=== PATIENT | male | born 1945 | race Caucasian/White ===

== ENCOUNTER 2018-01-05 18:32 | Inpatient (IN) ==
--- NOTE | 2018-01-05 21:17 | Internal Med History&Physical ---
<Myke Davidson - Last Filed: 01/06/18 01:04> Date of Encounter: 01/05/18 Time of Encounter: 21:05 Internal Medicine - H&P: HPI Chief complaint: Diarrhea Admitted From: Intrahospital Transfer ([facility]) History of present illness: Mr. Pineda is a 72 year old male with a past medical history of hypertension, hyperlipidemia, bowel resection, and obesity who was transferred from [facility] secondary to diarrhea for the past 8 days and acute kidney injury. Patient reports lightheadedness, cramping abdominal pain and diarrhea since eating chicken eggs from his neighbor that he thinks may have been out of date. He denies associated fever, chills, chest pain, shortness of breath, recent travel, recent camping, sick contacts, or history of similar symptoms in the past. Patient was evaluated yesterday by his PCP and notified today that his stool sample was positive for Salmonella and enteropathogenic Escherichia coli. Patient reports decreased urine output today and vital signs at [facility] revealed blood pressure 72/51, heart rate 72 after taking his beta eddie this morning, respiratory rate 20, temp afebrile, O2 sat 99% on room air. The patient was given 2 L normal saline bolus, 1 L lactated ringers, and 1 g Rocephin IV 1 prior to arrival. Labs revealed WBC 7.9, hemoglobin 15.3 , hematocrit 44.1, platelets 322, sodium 138, potassium 3.4, chloride 99, CO2 21 , BUN 68, creatinine 9.3, glucose 159, calcium 8.9, lipase 511, and lactic acid level 2.7 CT abdomen and pelvis without contrast revealed inflammatory changes involving the small bowel and descending colon with fluid in the pelvis. There is a non- obstructing stone in the right kidney, two low attenuation lesions of indeterminate etiology in the right kidney measuring up to 1.3 cm, and a 1.3 cm nodule in the right adrenal gland. MRI scan of the adrenals and kidneys was recommended. Past Med Surg Social Fam HX - Past Medical History Medical history: cancer, hyperlipidemia, hypertension, thyroid disease Additional medical history: Colon Cancer. CAD Psychiatric history: no psych history - Past Surgical History Surgical History: appendectomy, cancer surgery, cholecystectomy Additional surgical history: Heart Cath with stents, colon resection tubular adenoma 2 in 2016 - Social History Smoking Status: Former smoker Smokeless Tobacco Status: No Alcohol use: none Drug use: none Current living situation: Home, With Family Activity Level: Independent ambulation Recent Out of Country Travel Within the Last 8 Weeks: No Exposure or Possible Exposure to Illness During Travel: No - Family History Mother Hx Family Respiratory Disorders: Yes (COPD) Father Hx Family Endocrine Disorder: Yes (DM) Internal Medicine - H&P: Meds Amlodipine Besylate 10 mg PO DAILY 10/11/15 [History] Aspirin 81 mg PO DAILY 10/11/15 [History] Atorvastatin [Lipitor] 40 mg PO HS 10/11/15 [History] Ergocalciferol (VITAMIN D2) [Vitamin D] 400 unit PO DAILY 10/11/15 [History] Isosorbide MONOnitrate (24 HR) [Imdur] 30 mg PO DAILY 10/11/15 [History] Levothyroxine [Synthroid] 150 mcg PO DAILY 10/11/15 [History] Lisinopril [Zestril] 20 mg PO DAILY 10/11/15 [History] Vitamin E (Dl,Tocopheryl Acet) [Vitamin E] 400 unit PO DAILY 10/11/15 [History] Cholecalciferol (D-3) [Vitamin D] 1,000 unit PO DAILY 01/05/18 [History] Metoprolol Succinate [Toprol Xl] 100 mg PO DAILY 01/05/18 [History] 3 Allergy/AdvReac Type Severity Reaction Status Date / Time No Known Allergies Allergy Verified 10/11/15 10:52 All Systems PM: A 10-system review of systems was performed and is negative for pertinent findings except as documented above in the HPI. - Constitutional Constitutional: anorexia, fatigue, malaise, weakness, no chills, no fever(s), no weight gain, no weight loss - EENT Eyes: no blurry vision, no change in vision Nose, mouth and throat: no sinus pain, no sore throat - Cardiovascular Cardiovascular ROS IM: no chest pain, no palpitations - Respiratory Respiratory: no cough, no dyspnea - Gastrointestinal Gastrointestinal: abdominal pain, belching, diarrhea, loose stools, nausea, no bloating, no constipation, no hematemesis, no hematochezia, no melena, no vomiting - Genitourinary Genitourinary ROS male: no dysuria, no urinary frequency, no urinary urgency - Musculoskeletal Musculoskeletal ROS IM: no numbness, no tingling - Integumentary Integumentary IM: no erythema, no rash - Neurological Neurological ROS: weakness, no numbness, no tingling - Psychiatric Psychiatric: no anxiety, no depression - Endocrine Endocrine IM: fatigue, no polydipsia, no polyphagia, no polyuria - Hematologic/Lymphatic Hematologic/Lymphatic: no easy bleeding, no easy bruising - Constitutional General appearance: Present: cooperative, A&O X 3, pleasant, no acute distress, obese, answers questions appropriately Exam: Conversant, able to walk from the stretcher to the bed without difficulty - Head Head exam: Present: atraumatic, normocephalic - Eye Eye exam: Present: EOMI, conjuntiva pink, sclera anicteric - ENT ENT exam: Present: mucous membranes moist, normal oropharynx - Neck Neck exam general surgery: Present: supple, trachea midline. Absent: lymphadenopathy - Respiratory Respiratory exam: Present: CTAB. Absent: accessory muscle use, rales, rhonchi, wheezes - Cardiovascular Cardiovascular exam: Present: RRR, +S1, +S2. Absent: diastolic murmur, gallop, rubs, systolic murmur - GI/Abdominal GI/Abdominal exam: Present: normal bowel sounds, soft, no peritoneal signs. Absent: distended, guarding, tenderness - Extremities Exam Extremities exam: Present: warm, radial pulses palpable and symmetrical. Absent : cyanotic, pedal edema - Back Exam Back exam: Present: normal inspection. Absent: CVA tenderness (L), CVA tenderness (R), paraspinal tenderness, tenderness - Neurological Exam Neurological exam: Present: CN II-XII intact, oriented X3, no focal deficits. Absent: facial droop, speech deficit - Psychiatric Psychiatric exam: Present: normal affect, normal mood - Skin Skin exam: Present: dry, intact, normal color, warm Internal Med - H&P Results - Labs CBC & Chem 7: 01/06/18 00:20 01/06/18 00:20 - Pulse Oximetry Interpretation Digit-Finger O2 Sat by Pulse Oximetry: 97 (On room air) - Impressions CT abdomen and pelvis without contrast revealed inflammatory changes involving the small bowel and descending colon with fluid in the pelvis. There is a non- obstructing stone in the right kidney, two low attenuation lesions of indeterminate etiology in the right kidney measuring up to 1.3 cm, and a 1.3 cm nodule in the right adrenal gland. MRI scan of the adrenals and kidneys was recommended. - Assessment and plan (1) Severe sepsis Current Visit: Yes Status: Acute Assessment and plan: Patient met severe sepsis criteria with lactic acid level 2.7, blood pressure 72 /51, heart rate 72 after taking his beta eddie prior to arrival Patient was given 2 L normal saline bolus, 1 L lactated ringers, and 1 g Rocephin IV 1 Started on Cipro 250 mg BID PO Stool culture pending Blood cultures pending Repeat lactic acid level 1.3 Most recent blood pressure 127/53, maintain MAP greater than 65% Continue close monitoring (2) Enteropathogenic Escherichia coli infection Current Visit: Yes Status: Acute Assessment and plan: CT abdomen and pelvis without contrast revealed inflammatory changes involving the small bowel and descending colon with fluid in the pelvis. 01/04/18 GI panel was positive for Salmonella and enteropathogenic Escherichia coli Reflex stool culture pending Patient given 1 g Rocephin IV 1 prior to arrival Continue Cipro 250 mg twice a day in the setting of CARLOZ Renal diet Continue adequate hydration (3) Salmonella enteritis Current Visit: Yes Status: Acute Assessment and plan: Patient with cramping abdominal pain and diarrhea since eating chicken eggs from his neighbor that he thinks may have been out of date 01/04/18 GI panel was positive for Salmonella and enteropathogenic Escherichia coli Reflex stool culture pending Patient given 1 g Rocephin IV 1 prior to arrival Continue Cipro 250 mg twice a day in the setting of CARLOZ Renal diet Continue adequate hydration (4) CARLOZ (acute kidney injury) Current Visit: Yes Status: Acute Assessment and plan: Likely prerenal CARLOZ in the setting of 8 days of diarrhea and hypotension/ decreased renal perfusion Patient reported decreased urine output on arrival, no signs of obstruction, he is able to void without difficulty after IV fluids [facility] lab work revealed BUN 68, creatinine 9.3 CT abdomen pelvis without contrast revealed a non-obstructing stone in the right kidney, two low attenuation lesions of indeterminate etiology in the right kidney measuring up to 1.3 cm, and a 1.3 cm nodule in the right adrenal gland. MRI scan of the adrenals and kidneys was recommended. Repeat labs revealed BUN 64, creatinine 7.56 after given 2 L normal saline bolus , 1 L lactated ringers Renal ultrasound pending Urine albumin/ creatinine ratio pending Continue I&O measurements Nephrology consulted for further recommendations (5) Hypokalemia Current Visit: Yes Status: Acute Assessment and plan: Potassium level 3.1, magnesium level within normal limits Supplemental potassium Continue monitoring (6) HTN (hypertension) Current Visit: No Status: Chronic Assessment and plan: Hold home antihypertensive medications in the setting of severe sepsis Qualifiers: Hypertension type: essential hypertension Qualified Code(s): I10 - Essential (primary) hypertension (7) HLD (hyperlipidemia) Current Visit: Yes Status: Chronic Assessment and plan: Continue home statin Qualifiers: Hyperlipidemia type: unspecified Qualified Code(s): E78.5 - Hyperlipidemia , unspecified (8) Obesity (BMI 30.0-34.9) Current Visit: Yes Status: Chronic Assessment and plan: Lifestyle modification (9) DVT prophylaxis Current Visit: Yes Status: Acute Assessment and plan: Heparin subcutaneous TID (10) Hyperphosphatemia Current Visit: Yes Status: Acute Assessment and plan: Phosphorus level 6.8 Continue IV hydration Continue monitoring - Time Spent With Patient Total time spent is greater than 50% in coordination of care (as documented) at patient's floor/unit and/or counseling patient: Sepsis Reassessment Note - Evaluation Sepsis Screen: No Definite Risk Current Stage of Sepsis: sepsis Possible Source of Sepsis: GI tract/intra-abdominal - Focused Exam Date of Encounter: 01/05/18 Time of Encounter: 23:44 Vital Signs: Vital Signs Pulse Resp BP Pulse Ox 01/05/18 22:00 73 16 120/59 95 01/05/18 21:22 66 01/05/18 21:00 73 16 127/53 95 Respiratory Exam: Present: CTA bilaterally Cardiovascular Exam: Present: RRR Capillary Refill: < 2 seconds Peripheral Pulse Strength: 3+ normal Peripheral Pulse Location: Radial Skin Exam: normal turgor <Syed Newton - Last Filed: 01/06/18 03:05> Date of Encounter: 01/06/18 Time of Encounter: 00:10 - Constitutional Constitutional: chills, night sweats, no fever(s) - EENT Eyes: no blurry vision Ears: no ear pain Nose, mouth and throat: no sore throat - Cardiovascular Cardiovascular ROS IM: no chest pain, no dyspnea - Respiratory Respiratory: no cough, no hemoptysis - Gastrointestinal Gastrointestinal: abdominal pain, diarrhea, loose stools, no hematemesis, no hematochezia, no melena - Musculoskeletal Musculoskeletal ROS IM: no arthralgias, no back pain - Integumentary Integumentary IM: no rash, no jaundice - Constitutional Vitals: Temp Pulse Resp BP Pulse Ox 97.9 F 68 17 92/53 95 01/06/18 01:46 01/06/18 01:46 01/06/18 01:46 01/06/18 01:46 01/06/18 01:46 General appearance: Present: cooperative, A&O X 3, pleasant, no acute distress, answers questions appropriately - Eye Eye exam: Present: EOMI, PERRL. Absent: scleral icterus Pupils: Present: normal accommodation - ENT ENT exam: Present: mucous membranes dry, normal exam, normal oropharynx - Neck Neck exam general surgery: Present: supple - Respiratory Respiratory exam: Present: CTAB. Absent: rales, rhonchi, wheezes - Cardiovascular Cardiovascular exam: Present: RRR, +S1, +S2. Absent: diastolic murmur, systolic murmur - GI/Abdominal GI/Abdominal exam: Present: normal bowel sounds, soft. Absent: guarding, rebound, tenderness - Extremities Exam Extremities exam: Present: full ROM, warm, radial pulses palpable and symmetrical. Absent: calf tenderness, joint swelling - Back Exam Back exam: Absent: CVA tenderness (L), CVA tenderness (R) - Skin Skin exam: Present: dry, normal color, warm. Absent: rash Internal Med - H&P Results - Labs CBC & Chem 7: 01/06/18 00:20 01/06/18 00:20 Labs: Short CBC 01/06/18 Range/Units 00:20 WBC 7.9 (4.3-11.1) K/mcL Hgb 13.6 (12.9-16.9) g/dL Hct 38.7 (37.5-50.1) % Plt Count 300 (140-400) K/mcL BMP 01/05/18 01/06/18 21:38 00:20 Sodium 136 138 Potassium 3.1 L 3.3 L Chloride 103 102 Carbon Dioxide 20 L 21 L BUN 64 H 64 H Creatinine 7.98 H 7.56 H Glucose 105 104 Calcium 7.8 L 8.1 L Liver Function 01/06/18 Range/Units 00:20 Total Bilirubin 0.5 (0.3-1.0) mg/dL AST 26 (13-39) Units/L ALT 23 (7-52) Units/L Alkaline Phosphatase 94 (34-104) Units/L Albumin 3.6 (3.5-5.7) g/dL Urine 01/06/18 Range/Units 01:20 Urine Color Yellow (Yellow) Urine Clarity Slightly Hazy (Clear) Urine pH 5.5 (5.0-8.0) pH Units Ur Specific [place] 1.013 (1.010-1.025) Urine Protein 30 H (Neg-Trace) mg/dL Urine Glucose (UA) Normal (Normal) mg/dL - Assessment and plan (1) Severe sepsis Current Visit: Yes Status: Acute (2) Salmonella enteritis Current Visit: Yes Status: Acute (3) Enteropathogenic Escherichia coli infection Current Visit: Yes Status: Acute (4) CARLOZ (acute kidney injury) Current Visit: Yes Status: Acute (5) HTN (hypertension) Current Visit: No Status: Chronic Qualifiers: Hypertension type: essential hypertension Qualified Code(s): I10 - Essential (primary) hypertension (6) HLD (hyperlipidemia) Current Visit: Yes Status: Chronic Qualifiers: Hyperlipidemia type: unspecified Qualified Code(s): E78.5 - Hyperlipidemia , unspecified (7) Obesity (BMI 30.0-34.9) Current Visit: Yes Status: Chronic (8) DVT prophylaxis Current Visit: Yes Status: Acute (9) Hypokalemia Current Visit: Yes Status: Acute (10) Hyperphosphatemia Current Visit: Yes Status: Acute - Time Spent With Patient Total time spent is greater than 50% in coordination of care (as documented) at patient's floor/unit and/or counseling patient: - Attending Attestation I discussed the patient HOOPA, past medical history, review of systems, lab data , and exam findings with Dr. Davidson. I then saw, interviewed, and examined patient independently. I reviewed his records from [facility] as well. Patient and his both confirm that he was told his stool tested positive for Salmonella as obtained by his PCP. However, I cannot find any documentation of that. He denies any fevers, but he reports to me that he has had chills and night sweats over the last 24 hours. Given that he had a clinical presentation concerning for sepsis as well as a finding for Salmonella enteritis, I feel inclined to treat him with antibiotics at this time. I called and spoke with our pharmacy who recommends oral quinolones for now. He did receive a dose of Rocephin at [facility] prior to transfer. Blood pressure has stabilized now, and he has no symptoms of dizziness or lightheadedness. We will keep him on IV fluid hydration and monitor his vitals closely. Given his hypotension, we will hold his home blood pressure medications as well as his beta eddie. We will ask nephrology and infectious diseases to see him in consultation regarding his kidney failure and his Salmonella enteritis. I anticipate his kidney failure is secondary to volume depletion from diarrhea and sepsis causing a prerenal azotemia. I anticipate his kidney function returning to baseline with the above measures. Nonetheless, we will consult nephrology and image his kidneys with ultrasound. Other than my comments above and noted physical exam findings, I agree with Dr. Davidson's assessment and plan. Sepsis Reassessment Note - Focused Exam Vital Signs: Vital Signs Temp Pulse Resp BP Pulse Ox 01/06/18 01:46 97.9 F 68 17 92/53 95 01/06/18 01:05 97 01/05/18 22:00 73 16 120/59 95 01/05/18 21:22 66 01/05/18 21:00 73 16 127/53 95
[2018-01-05] MEDS ORDERED: Acetaminophen 325 MG TABLET PO PRN (21:18)
[2018-01-05] MEDS ORDERED: Naloxone 0.4 MG/ML INJ IVP PRN (21:18)
[2018-01-05] MEDS ORDERED: Ondansetron 4 MG/2 ML VIAL IVP PRN (21:18)
[2018-01-05 22:26] LABS: Calcium 7.8 mg/dL (8.6-10.3); Phosphorous 6.8 mg/dL (2.7-4.5); Potassium 3.1 mEq/L (3.5-5.1)
[2018-01-05] MEDS: *HR* Heparin 5,000 UNIT/ML VIAL SQ SCH (22:31)
[2018-01-05 22:45] LABS: Thyroid Stimulating Hormone 2.643 mcIU/mL (0.340-5.600)
[2018-01-05] MEDS ORDERED: Sodium Bicarbonate 50 MEQ/50 ML VIAL IVP ONE (22:56)
[2018-01-05] MEDS ORDERED: Potassium Chloride Elixir 20 MEQ/15 ML UDC PO ONE (23:04)
[2018-01-06] MEDS: 0.9 % Sodium Chloride 1,000 ML IVC SCH ×2 (00:26→08:55)
[2018-01-06 00:44] LABS: Hematocrit 38.7 % (37.5-50.1); Hemoglobin 13.6 g/dL (12.9-16.9); Immature Platelets 2.4 % (1.1-6.1); Mean Corpuscular HGB Conc 35.1 g/dL (31.6-35.5); Mean Corpuscular Hemoglobin 29.9 pg (28.0-33.3); Mean Corpuscular Volume 85.1 fL (83.0-100.0); Mean Platelet Volume 9.1 fL (9.4-12.4); Red Blood Count 4.55 M/mcL (4.19-5.50)
[2018-01-06 01:01] LABS: Albumin 3.6 g/dL (3.5-5.7); Albumin/Globulin Ratio 1.3 (1.1-2.2); Bilirubin,Total 0.5 mg/dL (0.3-1.0); Calcium 8.1 mg/dL (8.6-10.3); Globulin 2.8 g/dL (2.4-3.5); Potassium 3.3 mEq/L (3.5-5.1); Total Protein 6.4 g/dL (6.4-8.9)
[2018-01-06 01:39] LABS: Bilirubin,Urine Negative (Negative); Blood,Urine Negative (Negative); Clarity,Urine Slightly Hazy (Clear); Color,Urine Yellow (Yellow); Glucose,Urine (UA) Normal (Normal); Ketones,Urine Negative (Negative); Leukocyte Esterase,Urine Negative (Negative); Nitrite,Urine Negative (Negative); PH,Urine 5.5 pH Units (5.0-8.0); Protein,Urine 30 mg/dL (Neg-Trace); Specific Gravity,Urine 1.013 (1.010-1.025); Urobilinogen,Urine Normal (Normal)
[2018-01-06 01:56] LABS: Creatinine,Urine 336 mg/dL; Microalbum/Creatinine Ratio,Ur 15 mcg/mg (Less than 30); Microalbumin,Urine 51 mg/L
[2018-01-06 02:02] LABS: Bacteria,Urine Few per hpf (None-Few); Mucus,Urine Few (Few); Squamous Epithelial Cell,Urine Few per lpf (None-Few); Transitional Epi Cells,Urine Few per hpf (None-Few)
[2018-01-06] MEDS: *HR* Heparin 5,000 UNIT/ML VIAL SQ SCH ×3 (05:42→21:14)
[2018-01-06 08:15] LABS: INR 1.1; Prothrombin Time 12.7 Seconds (9.4-12.1)
[2018-01-06 08:17] LABS: Activated Partial Thrombo Time 28.4 Seconds (26.0-36.0)
[2018-01-06 08:30] LABS: Calcium 8.1 mg/dL (8.6-10.3); Phosphorous 5.5 mg/dL (2.7-4.5); Potassium 3.7 mEq/L (3.5-5.1)
[2018-01-06] MEDS: Isosorbide MONOnitrate (24 HR) 30 MG TAB.ER.24H PO SCH (08:54)
[2018-01-06] MEDS: Cholecalciferol (D-3) 1,000 UNIT TABLET PO SCH (08:54)
[2018-01-06] MEDS: Aspirin 81 MG TAB.CHEW PO SCH (08:54)
--- NOTE | 2018-01-06 08:57 | Internal Med Progress Note ---
Hospitalist Progress Note - Encounter Date of Encounter: 01/06/18 Time of Encounter: 09:30 - Subjective Interval History: awake with family at bedside. no abd pain, n/e. diarrhea slowing down. denies blood in stool or melena. Denies fever or chills. No lightheadedness or dizziness today, had presyncope on admission but has since resolved - Exam Vitals: Temp Pulse Resp BP Pulse Ox 98.1 F 64 18 99/58 96 01/06/18 07:00 01/06/18 07:00 01/06/18 07:00 01/06/18 07:00 01/06/18 07:00 Exam: General: awake, alert, appears stated age HEENT:EOM intact, pupils equal, round, drymucus membranes, clear oropharynx Neck: supple, trachea midline Cardiovascular:regular rate and rhythm, normal S1 & S2, no murmurs radial pulses 2+, no lower extremity edema Lungs:Normal breath sounds, no wheezes, or crackles. Normal respiratory effort on room air Abdomen:Soft, non-tender, distended, no rigidity, no guarding,+ bowel sounds Extremities:No deformity, no edema or tenderness, no joint swelling or clubbing. Neurological: AAOx3 Skin:Normal color, no rash, no pallor, no jaundice - Assessment and Plan (1) Severe sepsis Current Visit: Yes Status: Acute Assessment and Plan: Patient met severe sepsis criteria with lactic acid level 2.7, blood pressure 72 /51, heart rate 72 after taking his beta eddie prior to arrival Patient was given 2 L normal saline bolus, 1 L lactated ringers, and 1 g Rocephin IV 1 01/06 BP now normotensive, HR normal, afebrile, remains without leukocytosis, lactate 1.3 Stool culture + salmonella and enteropathogenic ecoli, c diff neg Blood cultures ngtd UA unremarkable for infection Repeat lactic acid level 1.3 treatment of GI infection with cipro PO- dosing as per pharmacy -ID following (2) Salmonella enteritis Current Visit: Yes Status: Acute Assessment and Plan: Patient with cramping abdominal pain and diarrhea since eating chicken eggs from his neighbor that he thinks may have been out of date 01/04/18 GI panel was positive for Salmonella and enteropathogenic Escherichia coli treatment as above Renal diet Continue adequate hydration (3) Enteropathogenic Escherichia coli infection Current Visit: Yes Status: Acute Assessment and Plan: CT abdomen and pelvis without contrast revealed inflammatory changes involving the small bowel and descending colon with fluid in the pelvis. 01/04/18 GI panel was positive for Salmonella and enteropathogenic Escherichia coli treatment as above Renal diet Continue adequate hydration (4) CARLOZ (acute kidney injury) Current Visit: Yes Status: Acute Assessment and Plan: Likely prerenal CARLOZ in the setting of 8 days of diarrhea and hypotension/ decreased renal perfusion Patient reported decreased urine output on arrival, no signs of obstruction, he is able to void without difficulty after IV fluids [facility] lab work revealed BUN 68, creatinine 9.3 CT abdomen pelvis without contrast revealed a non-obstructing stone in the right kidney, two low attenuation lesions of indeterminate etiology in the right kidney measuring up to 1.3 cm, and a 1.3 cm nodule in the right adrenal gland. MRI scan of the adrenals and kidneys was recommended and will be preformed after renal function is stabilized, perhaps as outpt Renal ultrasound pending Continue I&O measurements Nephrology consulted for further recommendations Improving with aggressive IVF rehydration no emergent HD at this time renal diet renal dose meds (5) HTN (hypertension) Current Visit: No Status: Chronic Assessment and Plan: currently bps are normotensive -was continued on home imdur and bps stable, cont to hold home norvasc, lisinopril, lopressor -will add back as appropriate cont to monitor (6) HLD (hyperlipidemia) Current Visit: Yes Status: Chronic Assessment and Plan: Continue home statin (7) Obesity (BMI 30.0-34.9) Current Visit: Yes Status: Chronic Assessment and Plan: Lifestyle modification (8) DVT prophylaxis Current Visit: Yes Status: Acute Assessment and Plan: Heparin subcutaneous (9) Hypokalemia Current Visit: Yes Status: Resolved Assessment and Plan: Potassium level 3.1, magnesium level within normal limits resolved with repletion Continue monitoring (10) Hyperphosphatemia Current Visit: Yes Status: Acute Assessment and Plan: Phosphorus level 6.8 Continue IV hydration Continue monitoring - Time Spent with Patient Total time spent is greater than 50% in coordination of care (as documented) at patient's floor/unit and/or counseling patient: 25 - 35 minutes Plan of Care Discussed with: patient Internal Medicine: Result - Labs CBC & Chem 7: 01/06/18 00:20 01/06/18 07:57 Labs: Short CBC 01/06/18 Range/Units 00:20 WBC 7.9 (4.3-11.1) K/mcL Hgb 13.6 (12.9-16.9) g/dL Hct 38.7 (37.5-50.1) % Plt Count 300 (140-400) K/mcL BMP 01/05/18 01/06/18 01/06/18 21:38 00:20 07:57 Sodium 136 138 137 Potassium 3.1 L 3.3 L 3.7 Chloride 103 102 107 Carbon Dioxide 20 L 21 L 18 L BUN 64 H 64 H 68 H Creatinine 7.98 H 7.56 H 7.24 H Glucose 105 104 99 Calcium 7.8 L 8.1 L 8.1 L Liver Function 01/06/18 Range/Units 00:20 Total Bilirubin 0.5 (0.3-1.0) mg/dL AST 26 (13-39) Units/L ALT 23 (7-52) Units/L Alkaline Phosphatase 94 (34-104) Units/L Albumin 3.6 (3.5-5.7) g/dL Urine 01/06/18 Range/Units 01:20 Urine Color Yellow (Yellow) Urine Clarity Slightly Hazy (Clear) Urine pH 5.5 (5.0-8.0) pH Units Ur Specific [place] 1.013 (1.010-1.025) Urine Protein 30 H (Neg-Trace) mg/dL Urine Glucose (UA) Normal (Normal) mg/dL - ABG Interpretation ABG results: PT/INR, D-dimer PT 12.7 Seconds (9.4-12.1) H 01/06/18 07:57 Consult Discharge Plan - Plan Referrals: Kamaljit López MD [Primary Care Provider] - (5) HTN (hypertension) Qualifiers: Hypertension type: essential hypertension Qualified Code(s): I10 - Essential (primary) hypertension (6) HLD (hyperlipidemia) Qualifiers: Hyperlipidemia type: unspecified Qualified Code(s): E78.5 - Hyperlipidemia, unspecified
[2018-01-06] MEDS ORDERED: NON-FORMULARY MEDICATION 1 EACH EACH (Ergocalciferol (Vitamin D2) [Vitamin D] 400 UNIT) PO SCH (09:00)
[2018-01-06] MEDS ORDERED: Metoprolol XL (24 HR) Succ 50 MG TAB.ER.24H PO SCH (09:00)
--- NOTE | 2018-01-06 11:12 | Infectious Disease Consult ---
Date of Encounter: 01/06/18 Time of Encounter: 11:00 Assessment and Plan (1) Enteropathogenic Escherichia coli infection Status: Acute Assessment and plan: GI panel was positive for Salmonella and enteropathogenic E.coli. Negative for C.diff. CT abd/pelvis showed inflammatory changes of small bowel and descending colon with fluid in pelvis. Blood cultures drawn 01/06 x2 sets are NGTD. Continue ciprofloxacin. Duration of treatment depends on clinical picture and blood culture results. Monitor renal function and for drug toxicity and dose-adjust antibiotics. Recommend aggressive hydration. (2) Salmonella enteritis Status: Acute Assessment and plan: See above. (3) CARLOZ (acute kidney injury) Status: Acute Assessment and plan: Likely pre-renal. Nephrology consulted. (4) Hypokalemia Status: Resolved Assessment and plan: Resolved. (5) Hyperphosphatemia Status: Acute Assessment and plan: Improving. (6) HTN (hypertension) Status: Chronic Assessment and plan: Home antihypertensives on hold due to hypotension before transfer. Qualifiers: Hypertension type: essential hypertension Qualified Code(s): I10 - Essential (primary) hypertension (7) HLD (hyperlipidemia) Status: Chronic Assessment and plan: On statin. Qualifiers: Hyperlipidemia type: unspecified Qualified Code(s): E78.5 - Hyperlipidemia , unspecified (8) History of cholecystectomy Status: Acute (9) History of colon cancer Status: Acute Assessment and plan: History of colon cancer with resection 10 years ago. Infectious Disease HPI - Data of Consult Requesting Physician: Karlee Ramirez Primary Care Provider: Kamaljit López MD - Consult Narrative History of present illness: Mr. Pineda is a 72 year old male with past medical history of HTN, HLD, thyroid disease, colon cancer status post bowel resection, cholecystectomy, CAD s/p stents. Patient was admitted to the hospital on 01/05/18 for CARLOZ and diarrhea positive for Salmonella and enteropathogenic E.coli. We are consulted on for diarrhea. Briefly, the patient is a 72 year old male with past medical history as stated above. Patient was transferred from [facility] [place] on 01/05/18 due to diarrhea for 8 days and CARLOZ. Patient states diarrhea started after eating chicken eggs from neighbor that he thinks were out of date. Stool sample was positive for Salmonella and enteropathogenic E.coli. Vitals at [facility] showed patient was afebrile with normal heart rate and respiratory rate. Patient was hypotensive at 72/51. WBC was normal. Lactic acid was elevated at 2.7. CT abd/ pelvis showed inflammatory changes of small bowel and descending colon with fluid in pelvis. Patient was given fluids and 1g Rocephin IV. Patient was transferred to [place]. Upon admission to [place], vital signs were stable and WBC was normal. Lactic acid was normal. Blood cultures were obtained. Patient was started on Cipro. Nephrology was consulted for CARLOZ. ID was consulted for Salmonella and E.coli infection. On exam today, patient endorses the history as stated above. No acute events overnight. The patient is resting comfortably in bed. Patient states he feels better than when first admitted. He is still having diarrhea. Describes stool as loose and watery and green in color without blood or mucus. Never had blood or mucus in stool. Reports stool volume has decreased. Patient reports average of 6 bowel movements a day. States now having 4 stools a day. Patient admits some abdominal soreness, denies any more abdominal cramping. Reports fair appetite. Patient admits to chills before admission. Denies fever/chills today. Denies nausea/vomiting. Denies rash. Denies chest pain, shortness of breath. Denies numbness/tingling. Denies swelling. CC: Karlee Ramirez Past Med Surg Social Fam HX - Past Medical History Medical history: cancer, hyperlipidemia, hypertension, thyroid disease Additional medical history: Colon Cancer. CAD Psychiatric history: no psych history - Past Surgical History Surgical History: appendectomy, cancer surgery, cholecystectomy Additional surgical history: Heart Cath with stents, colon resection tubular adenoma 2 in 2016 - Social History Smoking Status: Former smoker Smokeless Tobacco Status: No Alcohol use: none Drug use: none - Family History Mother Hx Family Respiratory Disorders: Yes (COPD) Father Hx Family Endocrine Disorder: Yes (DM) Infectious Disease-CN:Meds Amlodipine Besylate 10 mg PO DAILY 10/11/15 [History] Aspirin 81 mg PO DAILY 10/11/15 [History] Atorvastatin [Lipitor] 40 mg PO HS 10/11/15 [History] Ergocalciferol (VITAMIN D2) [Vitamin D] 400 unit PO DAILY 10/11/15 [History] Isosorbide MONOnitrate (24 HR) [Imdur] 30 mg PO DAILY 10/11/15 [History] Levothyroxine [Synthroid] 150 mcg PO DAILY 10/11/15 [History] Lisinopril [Zestril] 20 mg PO DAILY 10/11/15 [History] Vitamin E (Dl,Tocopheryl Acet) [Vitamin E] 400 unit PO DAILY 10/11/15 [History] Cholecalciferol (D-3) [Vitamin D] 1,000 unit PO DAILY 01/05/18 [History] Metoprolol Succinate [Toprol Xl] 100 mg PO DAILY 01/05/18 [History] 3 Allergy/AdvReac Type Severity Reaction Status Date / Time No Known Allergies Allergy Verified 10/11/15 10:52 Exam - Constitutional Vitals: Temp Pulse Resp BP Pulse Ox 97.6 F 67 17 116/57 96 01/06/18 10:53 01/06/18 10:53 01/06/18 10:53 01/06/18 10:53 01/06/18 10:53 General appearance: cooperative, no acute distress, obese, no febrile - Head Head exam: Present: atraumatic, normal inspection, normocephalic - Eye Eye exam: Present: EOMI, normal appearance, PERRL - ENT ENT exam: Present: mucous membranes moist, normal oropharynx - Neck Neck exam: Present: normal inspection - Respiratory Respiratory exam: Present: CTAB. Absent: rales, respiratory distress, rhonchi, wheezes - Cardiovascular Cardiovascular exam: Present: RRR, +S1, +S2 - GI/Abdominal GI/Abdominal exam: Present: normal bowel sounds, soft, tenderness (Lower abdomen tender to palpation ). Absent: distended - Extremities Exam Extremities exam: Present: normal inspection. Absent: joint swelling, pedal edema, tenderness - Neurological Exam Neurological exam: Present: alert, oriented X3 - Psychiatric Psychiatric exam: Present: normal affect, normal mood - Skin Skin exam: Present: dry, intact, normal color, warm. Absent: petechiae, rash Infectious Disease CN: Results - Labs CBC & Chem 7: 01/06/18 00:20 01/06/18 14:44 Cultures: Cultures 01/06/18 00:20 Blood Culture - Preliminary Peripheral Venipuncture Culture is incubating and being continuously monitored for growth. Final report to follow. 01/06/18 00:20 Blood Culture - Preliminary Peripheral Venipuncture Culture is incubating and being continuously monitored for growth. Final report to follow. Serology: Serology 01/06/18 01/06/18 Range/Units 01:20 01:20 Urine Color Yellow (Yellow) Urine Clarity Slightly Hazy (Clear) Urine pH 5.5 (5.0-8.0) pH Units Ur Specific [place] 1.013 (1.010-1.025) Urine Protein 30 H (Neg-Trace) mg/dL Urine Glucose (UA) Normal (Normal) mg/dL Urine Ketones Negative (Negative) mg/dL Urine Blood Negative (Negative) Urine Nitrite Negative (Negative) Urine Bilirubin Negative (Negative) Urine Urobilinogen Normal (Normal) mg/dL Ur Leukocyte Esterase Negative (Negative) Urine Microscopic WBC 3-5 H (0-3) per hpf Ur Squamous Epith Cells Few (None-Few) per lpf Ur Transition Epith Cell Few (None-Few) per hpf Urine Bacteria Few (None-Few) per hpf Urine Mucus Few (Few) Ur Culture Indicated? NO (NO) Urine Creatinine 336 mg/dL Urine Microalbumin 51 mg/L Microalb/Creat Ratio 15 (Less than 30) mcg/mg Consult Discharge Plan - Plan Referrals: Kamaljit López MD [Primary Care Provider] - - Attending Attestation I examined this patient and my medical decision-making was reviewed with the Resident Physician. I agree with the documented findings, disposition and treatment plan as described except to the extent set forth below. This is an addendum to original report dictated by resident physician. Please refer to resident's note for full detail. Patient 72-year-old gentleman with past medical history mentioned below who also had a history of colon cancer status post resection about 10 years ago and had his gallbladder removed was in the usual state of health until about 8 days prior to admission which started having severe diarrhea. Diarrhea was watery 6- 8 watery bowel movements a day with no associated blood in the stool no mucus. No nausea or vomiting. No real abdominal pain. He was having chills and he does not know if she was having fevers. Patient eventually went to his PCP and they checked his stool was positive for salmonella and EPEC. Patient was then seen in [facility] for severe dehydration and acute kidney injury and transferred here for evaluation. Currently patient doing well he has no sepsis criteria he was hypotensive and had lactic acidosis initially by think it was all due to his severe dehydration. Patient was aggressively hydrated and started on ciprofloxacin. We were asked to evaluate the patient and make further recommendation. Agree with current treatment with ciprofloxacin. Duration of treatment depends on clinical picture but 7 days. He feels that the culprit for his infection is he ate farm and from his neighbors house that has been sitting out for a long time. Monitor kidney function closely Monitor labs
[2018-01-06] MEDS: Ringers Solution, Lactated 1,000 ML IVC SCH ×2 (12:06→22:09)
--- NOTE | 2018-01-06 15:14 | Nephrology Consult Note ---
Date of Encounter: 01/06/18 Time of Encounter: 08:30 Assessment and Plan (1) CARLOZ (acute kidney injury) Current Visit: Yes Status: Acute Acute kidney injury secondary to severe sepsis in the setting of diarrhea Most likely etiology is prerenal in nature, patient is significantly dehydrated in setting of severe diarrhea Patient presented with serum creatinine 9.3, this is trended downward to 7.2 today He otherwise remains biochemically stable, minimally hypokalemic He did receive 3 L bolus upon arrival, has received maintenance fluids with normal saline since UA does not demonstrate any RBCs, no suspicion for HUS at this time Plan: -Continue fluids with lactated Ringer 125mL/hr -Check retroperitoneal ultrasound, protein creatinine ratio -Repeat BMP this afternoon, if acidosis worsens consider bicarbonate drip -Patient may require acute hemodialysis at renal function worsens, stable at this time -Monitor strict I's and O's -Avoid nephrotoxic agents as possible (2) Hypokalemia Current Visit: Yes Status: Resolved Patient has maintained minimal hypokalemia since arrival Recommend replacement with oral potassium as needed Received 40 mEq a day Will recheck in the morning, replace as needed (3) Salmonella enteritis Current Visit: Yes Status: Acute Severe diarrhea secondary to Salmonella enteritis Management per primary team History of Present Illness - Reason for Consult Consult date: 01/06/18 Acute Kidney Injury Requesting physician: Myke Davidson - Chief Complaint Diarrhea - History of Present Illness Mr. Pineda is a 72-year-old gentleman with a history of hypertension, hyperlipidemia, colon cancer status post bowel resection 2, CAD status post PCI with stents 2 who presented to [facility] with 90 history of diarrhea which was nonbloody in nature. He says that he believes that he developed an infection after eating eggs which she got from for your range chickens. He believes that these eggs have gone bad after sitting for too long. This diarrhea has been relatively nonstop for approximately 9 days. He describes it as watery in nature and multiple colors. He describes it is nonbloody in nature and nonmucoid. Seems to make this better or worse. He feels as though he has been able to maintain his hydration level and he does not feel that he has been significantly dehydrated. He has been able to eat and does not admit to any nausea or vomiting associated with this although he has had some dry heaves. Denies any urinary symptoms associated with this. He has not had any burning with urination or has not had any decrease in urinary. He snored as he denies any frequency changes with his urination. He has never had any trouble with his kidneys before, nor does he have any family history of renal concerns. He is not aware of anyone in his family has had dialysis in the past. Admit to a history of NSAID use, mentioning that he takes ibuprofen once per day due to carpal tunnel syndrome. He said that he continued to take these NSAIDs throughout the duration of his diarrhea. He has never seen a nurse intern in the past. He has no other acute complaints at this time. Nephrology was consulted for management of CARLOZ. Past Med Surg Social Fam HX - Past Medical History Medical history: cancer, hyperlipidemia, hypertension, thyroid disease Additional medical history: Colon Cancer. CAD Psychiatric history: no psych history - Past Surgical History Surgical History: appendectomy, cancer surgery, cholecystectomy Additional surgical history: Heart Cath with stents, colon resection tubular adenoma 2 in 2016 - Social History Smoking Status: Former smoker Smokeless Tobacco Status: No Alcohol use: none Drug use: none - Family History Mother Hx Family Respiratory Disorders: Yes (COPD) Father Hx Family Endocrine Disorder: Yes (DM) Medications and Allergies Amlodipine Besylate 10 mg PO DAILY 10/11/15 [History] Aspirin 81 mg PO DAILY 10/11/15 [History] Atorvastatin [Lipitor] 40 mg PO HS 10/11/15 [History] Ergocalciferol (VITAMIN D2) [Vitamin D] 400 unit PO DAILY 10/11/15 [History] Isosorbide MONOnitrate (24 HR) [Imdur] 30 mg PO DAILY 10/11/15 [History] Levothyroxine [Synthroid] 150 mcg PO DAILY 10/11/15 [History] Lisinopril [Zestril] 20 mg PO DAILY 10/11/15 [History] Vitamin E (Dl,Tocopheryl Acet) [Vitamin E] 400 unit PO DAILY 10/11/15 [History] Cholecalciferol (D-3) [Vitamin D] 1,000 unit PO DAILY 01/05/18 [History] Metoprolol Succinate [Toprol Xl] 100 mg PO DAILY 01/05/18 [History] 3 Allergy/AdvReac Type Severity Reaction Status Date / Time No Known Allergies Allergy Verified 10/11/15 10:52 Review of Systems All Systems review (narrative): Constitutional: Denies fevers, chills, weight loss, generalized fatigue Head/Neck: Denies OROZCO, neck stiffness EENT: Denies vision changes/blurriness, rhinorrhea, congestion, sore throat CVS: Denies chest pain, palpitations, HORTON, orthopnea, edema, PND Pulm: Denies SOB, cough, sputum, hemoptysis, wheezing GI: Admits to abdominal cramping, diarrhea. Denies nausea and vomiting : Denies dysuria, increased frequency, urgency, hematuria Heme: Denies ease of bleeding or bruising MSK: Denies joint pain, limited ROM Skin: Denies rashes, ulcers, color changes Neuro: Denies OROZCO, paresthesias, focal deficits, ataxia Exam - Vital Signs Vital signs: Initial Vital Signs Pulse Resp BP Pulse Ox 73 16 127/53 95 01/05/18 21:00 01/05/18 21:00 01/05/18 21:00 01/05/18 21:00 Vital Signs - Last 8 Hours Temp Pulse Resp BP Pulse Ox 01/06/18 10:53 97.6 F 67 17 116/57 96 01/06/18 09:20 97.9 F 70 17 125/66 95 Intake and Output 01/05/18 01/06/18 01/06/18 23:59 07:59 15:59 Intake Total 0 / 0 1400 / 1400 Output Total 100 / 100 Balance 0 / 0 -100 / -100 1400 / 1400 Intake: IV Fluids 1400 / 1400 0.9 % Sodium Chloride 1,000 ML 1400 / 1400 @ 125 mls/hr IVC .Q8H [facility] Rx#: [id number] Oral 0 / 0 Output: Urine 100 / 100 Other: Weight 100.8 kg Blood Glucose* 109 - General Appearance Exam: Gen.: Vitals noted. No acute distress. HEENT: Normocephalic, atraumatic Neck: Supple. No adenopathy. Cardiac: RRR, no murmur, +S1/S2 Pulmonary: CTA bilaterally, no wheezes, rales or rhonchi, equal chest expansion Abdomen: soft, nontender, BS noted, no guarding Extremities: no BLE edema, nontender calf, no cyanosis or clubbing Integument: No rashes or petechiae Neuro: A&Ox3, moves all extremities, no focal deficits Psych: Appropriate mood and behavior Results - Lab Results 01/06/18 00:20 01/06/18 07:57 Most recent lab results Calcium 8.1 mg/dL (8.6-10.3) L 01/06/18 07:57 Phosphorus 5.5 mg/dL (2.7-4.5) H 01/06/18 07:57 Magnesium 2.0 mg/dL (1.6-2.6) 01/05/18 21:38 Urine Creatinine 336 mg/dL 01/06/18 01:20 Consult Discharge Plan - Plan Referrals: Kamaljit López MD [Primary Care Provider] -
[2018-01-06 15:24] LABS: Potassium 3.4 mEq/L (3.5-5.1)
[2018-01-06] MEDS ORDERED: Perflutren Lipid Microsphere 1.3 ML in 0.9 % Sodium Chloride 8.7 ML IVP ONE (15:35)
[2018-01-06 22:54] LABS: Protein/Creatinine Ratio,Urine 0.17 mg/mg (0.00-0.20)
[2018-01-07] MEDS: *HR* Heparin 5,000 UNIT/ML VIAL SQ SCH ×3 (05:34→21:46)
[2018-01-07 06:42] LABS: Magnesium 1.8 mg/dL (1.6-2.6); Phosphorous 3.8 mg/dL (2.7-4.5)
[2018-01-07] MEDS: Ringers Solution, Lactated 1,000 ML IVC SCH (06:57)
[2018-01-07 07:45] LABS: Albumin 3.3 g/dL (3.5-5.7); Albumin/Globulin Ratio 1.4 (1.1-2.2); Bilirubin,Total 0.5 mg/dL (0.3-1.0); Calcium 8.3 mg/dL (8.6-10.3); Globulin 2.4 g/dL (2.4-3.5); Potassium 3.6 mEq/L (3.5-5.1); Total Protein 5.7 g/dL (6.4-8.9)
--- NOTE | 2018-01-07 09:03 | Internal Med Progress Note ---
Hospitalist Progress Note - Encounter Date of Encounter: 01/07/18 Time of Encounter: 09:55 - Subjective Interval History: awake, family present. diarrhea is improving inthat he is no longer incontinent. 3 watery episodes since 1 am this morning. green stool, no blood or mucus. No abd pain or cramping, n/v. Denies fevers or chills. - Exam Vitals: Temp Pulse Resp BP Pulse Ox 98.4 F 77 16 117/58 92 01/07/18 07:42 01/07/18 07:42 01/07/18 07:42 01/07/18 07:42 01/07/18 07:42 Exam: General: awake, alert, appears stated age HEENT:pupils equal, round, moist mucus membranes, no scleral icterus Cardiovascular:regular rate and rhythm, normal S1 & S2 Lungs:Normal breath sounds, no wheezes, or crackles. Normal respiratory effort on room air Abdomen:Soft, non-tender, distended, no rigidity, no guarding,+ bowel sounds Neurological: AAOx3 Skin:Normal color, no rash, no pallor, no jaundice - Assessment and Plan (1) Severe sepsis Current Visit: Yes Status: Acute Assessment and Plan: Patient met severe sepsis criteria with lactic acid level 2.7, blood pressure 72 /51, heart rate 72 after taking his beta eddie prior to arrival Patient was given 2 L normal saline bolus, 1 L lactated ringers, and 1 g Rocephin IV 1 01/06 RESOLVED BP normotensive, HR normal, afebrile, remains without leukocytosis , lactate 1.3 -Stool culture + salmonella and enteropathogenic ecoli with PCP and c diff neg reprotedly at OSH -repeat cx here + gnr -Blood cultures ngtd -UA unremarkable for infection, no cxr as no symptoms of resp infection -treatment of GI infection with cipro PO- dosing as per pharmacylen for 7 days depending on clinical picture -IVFs -ID following (2) Salmonella enteritis Current Visit: Yes Status: Acute Assessment and Plan: Patient with cramping abdominal pain and diarrhea since eating chicken eggs from his neighbor that he thinks may have been out of date as above (3) Enteropathogenic Escherichia coli infection Current Visit: Yes Status: Acute Assessment and Plan: as above (4) CARLOZ (acute kidney injury) Current Visit: Yes Status: Acute Assessment and Plan: Likely prerenal CARLOZ in the setting of 8 days of diarrhea and hypotension/ decreased renal perfusion, IMPROVING Patient reported decreased urine output on arrival, no signs of obstruction, he is able to void without difficulty after IV fluids [facility] lab work revealed BUN 68, creatinine 9.3 CT abdomen pelvis without contrast revealed a non-obstructing stone in the right kidney, two low attenuation lesions of indeterminate etiology in the right kidney measuring up to 1.3 cm, and a 1.3 cm nodule in the right adrenal gland. MRI scan of the adrenals and kidneys was recommended and will be preformed after renal function is stabilized, perhaps as outpt Renal ultrasound unremarkable Continue I&O measurements Nephrology following Improving with aggressive IVF rehydration no emergent HD at this time renal diet renal dose meds (5) HTN (hypertension) Current Visit: No Status: Chronic Assessment and Plan: currently bps are normotensive -was continued on home imdur and bps stable, cont to hold home norvasc, lisinopril, lopressor -will add back as appropriate cont to monitor (6) HLD (hyperlipidemia) Current Visit: Yes Status: Chronic Assessment and Plan: Continue home statin (7) Obesity (BMI 30.0-34.9) Current Visit: Yes Status: Chronic Assessment and Plan: Lifestyle modification (8) DVT prophylaxis Current Visit: Yes Status: Acute Assessment and Plan: Heparin subcutaneous (9) Hypokalemia Current Visit: Yes Status: Resolved Assessment and Plan: Potassium level 3.1, magnesium level within normal limits resolved with repletion Continue monitoring with diarrhea (10) Hyperphosphatemia Current Visit: Yes Status: Resolved Assessment and Plan: Phosphorus level 6.8 resolved Continue IV hydration - Time Spent with Patient Total time spent is greater than 50% in coordination of care (as documented) at patient's floor/unit and/or counseling patient: Internal Medicine: Result - Labs CBC & Chem 7: 01/06/18 00:20 01/07/18 05:14 Labs: BMP 01/06/18 01/07/18 14:44 05:14 Sodium 137 137 Potassium 3.4 L 3.6 Chloride 110 H 113 H Carbon Dioxide 18 L 14 L BUN 67 H 59 H Creatinine 6.61 H 4.40 H Glucose 105 99 Calcium 8.0 L 8.3 L Liver Function 01/07/18 Range/Units 05:14 Total Bilirubin 0.5 (0.3-1.0) mg/dL AST 26 (13-39) Units/L ALT 23 (7-52) Units/L Alkaline Phosphatase 83 (34-104) Units/L Albumin 3.3 L (3.5-5.7) g/dL - ABG Interpretation ABG results: PT/INR, D-dimer PT 12.7 Seconds (9.4-12.1) H 01/06/18 07:57 - Impressions Impressions Echocardiogram 01/06/18 04:50 Impressions: LVEF 65-70%. Normal LV chamber size, wall thickness and function. Normal right ventricular structure and function. All valves are not well visualized. No significant valvular dysfunction. Unable to estimate RVSP due to lack of TR jet. Left Ventricular Wall Motion: Rest Echo Findings All wall segments showed normal motion. Findings: Study Quality * Technically sub-optimal due to poor echocardiographic windows. ECG Findings * Normal sinus rhythm. Left Ventricle * LVEF 65-70%. * Normal LV chamber size, wall thickness and function. * Normal left ventricular diastolic function. Right Ventricle * Normal right ventricular structure and function. Left Atrium * Normal left atrial size. Right Atrium * Normal right atrial size. Interatrial Septum * Interatrial septum not well evaluated. Aortic Valve * Aortic valve not well visualized. * No aortic stenosis. * No aortic regurgitation. Mitral Valve * Mitral valve not well visualized. * No mitral regurgitation. Tricuspid Valve * Tricuspid valve not well visualized. * No tricuspid regurgitation. * Unable to estimate RVSP due to lack of TR jet. Pulmonic Valve * No pulmonic regurgitation. * Pulmonic valve not well visualized. Aorta * Normally sized aortic root. Pericardium * The pericardium appears normal. IVC * The IVC is not visualized. Retroperitoneum Ultrasound 01/06/18 16:00 IMPRESSION: 1. No evidence of hydronephrosis. 2. Mild cortical thinning of the left superior/mid cortex. D/ / Demetria Hussein MD / Demetria Hussein MD Interpreting Provider: Demetria Hussein MD Consult Discharge Plan - Plan Referrals: Kamaljit López MD [Primary Care Provider] - (5) HTN (hypertension) Qualifiers: Hypertension type: essential hypertension Qualified Code(s): I10 - Essential (primary) hypertension (6) HLD (hyperlipidemia) Qualifiers: Hyperlipidemia type: unspecified Qualified Code(s): E78.5 - Hyperlipidemia, unspecified
[2018-01-07] MEDS: Aspirin 81 MG TAB.CHEW PO SCH (09:44)
[2018-01-07] MEDS: Cholecalciferol (D-3) 1,000 UNIT TABLET PO SCH (09:44)
[2018-01-07] MEDS: Isosorbide MONOnitrate (24 HR) 30 MG TAB.ER.24H PO SCH (09:44)
[2018-01-07] MEDS: Sodium Bicarbonate 75 MEQ in 0.45 % Sodium Chloride 1,000 ML IVC SCH ×2 (09:46→21:45)
--- NOTE | 2018-01-07 10:28 | Infectious Disease Progress No ---
Date of Encounter: 01/07/18 Time of Encounter: 10:26 - Assessment and Plan (1) Enteropathogenic Escherichia coli infection Current Visit: Yes Status: Acute Etiology unclear. The patient sates he thinks it may be from eggs that had set out too long. GI panel was positive for Salmonella and enteropathogenic E.coli. Negative for C.diff. CT abd/pelvis showed inflammatory changes of small bowel and descending colon with fluid in pelvis. Blood cultures drawn 01/06 x2 sets are NGTD. Clinically, the patient is improved. Continue ciprofloxacin 500mg PO daily. (day 2) Duration of treatment depends on clinical picture and blood culture results, but likely a total of 7 days. Monitor renal function and dose-adjust antibiotics. Continue supportive care to maintain adequate hydration. (2) Salmonella enteritis Current Visit: Yes Status: Acute Clinically improved. Recommendations as above. (3) CARLOZ (acute kidney injury) Current Visit: Yes Status: Acute Serum creatinine 7.8 on admission. Likely prerenal from dehydration from diarrhea. Improved. Nephrology consulted and following. Continue to trend. Dose-adjust antibiotics. Avoid nephrotoxins as able. (4) HTN (hypertension) Current Visit: No Status: Chronic Qualifiers: Hypertension type: essential hypertension Qualified Code(s): I10 - Essential (primary) hypertension (5) HLD (hyperlipidemia) Current Visit: Yes Status: Chronic Qualifiers: Hyperlipidemia type: unspecified Qualified Code(s): E78.5 - Hyperlipidemia , unspecified (6) Obesity (BMI 30.0-34.9) Current Visit: Yes Status: Chronic (7) History of cholecystectomy Current Visit: Yes Status: Acute (8) History of colon cancer Current Visit: Yes Status: Acute History of colon cancer with resection 10 years ago. - Subjective Interval history: Patient seen and examined. No acute events noted overnight. Patient sitting up on the side of the bed with family at bedside. States overall he feels much better. He does report that his stools are more loose and are still very frequent, but states that they seem to be getting more formed. Denies any fevers or rigors, but does report some chills overnight. Denies any chest pain or shortness of breath or cough. Denies nausea or vomiting. States he is not eating much because he does not like the food here. Denies abdominal pain or urinary complaints. Denies any pain at this time. He denies any oral thrush or new skin lesions. Infect Dis PN-Objective Data - Labs CBC & Chem 7: 01/06/18 00:20 01/07/18 05:14 Labs: Laboratory Results - last 24 hr 01/06/18 01/06/18 01/07/18 11:17 14:44 05:14 Sodium 137 137 Potassium 3.4 L 3.6 Chloride 110 H 113 H Carbon Dioxide 18 L 14 L BUN 67 H 59 H Creatinine 6.61 H 4.40 H Est GFR ( Amer) 10 L 16 L Est GFR (Non-Af Amer) 8 L 13 L BUN/Creatinine Ratio 10 13 Glucose 105 99 Calculated Osmolality 304 H 301 H Calcium 8.0 L 8.3 L Phosphorus Magnesium Total Bilirubin 0.5 AST 26 ALT 23 Alkaline Phosphatase 83 Serum Total Protein 5.7 L Albumin 3.3 L Globulin 2.4 Albumin/Globulin Ratio 1.4 Urine Creatinine 185 Protein/Creatinin Ratio 0.17 Urine Total Protein 32 H 01/07/18 05:14 Sodium Potassium Chloride Carbon Dioxide BUN Creatinine Est GFR ( Amer) Est GFR (Non-Af Amer) BUN/Creatinine Ratio Glucose Calculated Osmolality Calcium Phosphorus 3.8 Magnesium 1.8 Total Bilirubin AST ALT Alkaline Phosphatase Serum Total Protein Albumin Globulin Albumin/Globulin Ratio Urine Creatinine Protein/Creatinin Ratio Urine Total Protein Cultures: Cultures 01/06/18 00:20 Blood Culture - Preliminary Peripheral Venipuncture Culture is incubating and being continuously monitored for growth. Final report to follow. 01/06/18 00:20 Blood Culture - Preliminary Peripheral Venipuncture Culture is incubating and being continuously monitored for growth. Final report to follow. Serology 01/06/18 01/06/18 01/06/18 Range/Units 11:17 01:20 01:20 Urine Color Yellow (Yellow) Urine Clarity Slightly Hazy (Clear) Urine pH 5.5 (5.0-8.0) pH Units Ur Specific [place] 1.013 (1.010-1.025) Urine Protein 30 H (Neg-Trace) mg/dL Urine Glucose (UA) Normal (Normal) mg/dL Urine Ketones Negative (Negative) mg/dL Urine Blood Negative (Negative) Urine Nitrite Negative (Negative) Urine Bilirubin Negative (Negative) Urine Urobilinogen Normal (Normal) mg/dL Ur Leukocyte Esterase Negative (Negative) Urine Microscopic WBC 3-5 H (0-3) per hpf Ur Squamous Epith Cells Few (None-Few) per lpf Ur Transition Epith Cell Few (None-Few) per hpf Urine Bacteria Few (None-Few) per hpf Urine Mucus Few (Few) Ur Culture Indicated? NO (NO) Urine Creatinine 185 336 mg/dL Urine Microalbumin 51 mg/L Microalb/Creat Ratio 15 (Less than 30) mcg/mg Protein/Creatinin Ratio 0.17 (0.00-0.20) mg/mg Urine Total Protein 32 H (1-14) mg/dL - Impressions Impressions Echocardiogram 01/06/18 04:50 Impressions: LVEF 65-70%. Normal LV chamber size, wall thickness and function. Normal right ventricular structure and function. All valves are not well visualized. No significant valvular dysfunction. Unable to estimate RVSP due to lack of TR jet. Left Ventricular Wall Motion: Rest Echo Findings All wall segments showed normal motion. Findings: Study Quality * Technically sub-optimal due to poor echocardiographic windows. ECG Findings * Normal sinus rhythm. Left Ventricle * LVEF 65-70%. * Normal LV chamber size, wall thickness and function. * Normal left ventricular diastolic function. Right Ventricle * Normal right ventricular structure and function. Left Atrium * Normal left atrial size. Right Atrium * Normal right atrial size. Interatrial Septum * Interatrial septum not well evaluated. Aortic Valve * Aortic valve not well visualized. * No aortic stenosis. * No aortic regurgitation. Mitral Valve * Mitral valve not well visualized. * No mitral regurgitation. Tricuspid Valve * Tricuspid valve not well visualized. * No tricuspid regurgitation. * Unable to estimate RVSP due to lack of TR jet. Pulmonic Valve * No pulmonic regurgitation. * Pulmonic valve not well visualized. Aorta * Normally sized aortic root. Pericardium * The pericardium appears normal. IVC * The IVC is not visualized. Retroperitoneum Ultrasound 01/06/18 16:00 IMPRESSION: 1. No evidence of hydronephrosis. 2. Mild cortical thinning of the left superior/mid cortex. D/ / Demetria Hussein MD / Demetria Hussein MD Interpreting Provider: Demetria Hussein MD Exam - Constitutional Vitals: Temp Pulse Resp BP Pulse Ox 98.4 F 77 16 117/58 92 01/07/18 07:42 01/07/18 07:42 01/07/18 07:42 01/07/18 07:42 01/07/18 09:58 General appearance: cooperative, morbidly obese, no acute distress - Head Head exam: Present: atraumatic, normal inspection, normocephalic - Eye Eye exam: Present: EOMI, normal appearance, PERRL Pupils: Present: normal accommodation - ENT ENT exam: Present: mucous membranes moist - Neck Neck exam: Present: normal inspection - Respiratory Respiratory exam: Present: CTAB. Absent: rales, respiratory distress, rhonchi, wheezes - Cardiovascular Cardiovascular exam: Present: RRR, +S1, +S2 - GI/Abdominal GI/Abdominal exam: Present: distended (Obese), normal bowel sounds, soft. Absent: tenderness - Extremities Exam Extremities exam: Present: normal inspection. Absent: joint swelling, pedal edema, tenderness - Neurological Exam Neurological exam: Present: alert, oriented X3, no focal deficits - Psychiatric Psychiatric exam: Present: normal affect, normal mood - Skin Skin exam: Present: dry, intact, normal color, warm Consult Discharge Plan - Plan Referrals: Kamaljit López MD [Primary Care Provider] -
--- NOTE | 2018-01-07 15:21 | Nephrology Progress Note ---
Date of Encounter: 01/07/18 Time of Encounter: 08:15 - Assessment and Plan (1) CARLOZ (acute kidney injury) Current Visit: Yes Status: Acute Acute kidney injury secondary to severe sepsis in the setting of diarrhea Most likely etiology is prerenal in nature, patient is significantly dehydrated in setting of severe diarrhea Initially improved on BMP this morning, serum creatinine 4.4. The patient does have worsened metabolic acidosis which is non-anion gap, bicarbonate 14 This was expected, especially because the patient has been on lactated Ringer's and normal saline Renal ultrasound demonstrated cortical thinning in the left superior minimal cortex Plan: -Incision patient to half-normal saline with 75 mEq of bicarbonate -Acute indication for hemodialysis at this time -Monitor strict I's and O's -Avoid nephrotoxic agents as possible (2) Hypokalemia Current Visit: Yes Status: Resolved Patient has maintained minimal hypokalemia since arrival Recommend replacement with oral potassium as needed Will recheck in the morning, replace as needed (3) Salmonella enteritis Current Visit: Yes Status: Acute Severe diarrhea secondary to Salmonella enteritis Management per primary team Subjective Principal diagnosis: Diarrhea Interval history: The patient is resting comfortably in bed at time of examination. He has no acute complaints this morning. He does still have some diarrhea but overall he is feeling significantly better than he was yesterday. He still says he is having some urine output. Objective - Vital Signs Vital signs: Vital Signs Temp Pulse Resp BP Pulse Ox 01/07/18 11:43 98.2 F 73 16 128/50 95 01/07/18 09:58 92 01/07/18 07:42 98.4 F 77 16 117/58 92 01/07/18 05:13 98.1 F 74 16 143/62 96 01/07/18 02:14 98 F 77 16 125/60 95 01/06/18 22:45 98.5 F 72 15 122/53 95 01/06/18 19:46 95 01/06/18 17:51 98.4 F 71 18 120/61 95 Intake and Output 01/06/18 01/07/18 01/07/18 23:59 07:59 15:59 Intake Total 1000 / 1000 1000 / 1000 120 / 120 Output Total 425 / 425 400 / 400 200 / 200 Balance 575 / 575 600 / 600 -80 / -80 Intake: IV Fluids 1000 / 1000 1000 / 1000 Lactated Ringers 1,000 ML @ 125 1000 / 1000 1000 / 1000 mls/hr IVC .Q8H [facility] Rx#: [id number] Oral 120 / 120 Output: Urine 425 / 425 400 / 400 200 / 200 Other: Meal Breakfast Percent of Meal Consumed 10% Stool Size Small Stool Consistency loose soft Stool Color Brown Weight 99.337 kg Patient Weight 01/07/18 23:59 Weight 99.337 kg - General Appearance Exam: Gen: Vitals noted. No acute distress. HEENT: Normocephalic, atraumatic Neck: Supple. No adenopathy. Cardiac: RRR, no murmur, +S1/S2 Pulmonary: CTA bilaterally, no wheezes, rales or rhonchi, equal chest expansion Abdomen: soft, nontender, BS noted, no guarding Extremities: no BLE edema, nontender calf, no cyanosis or clubbing Integument: No rashes or petechiae Neuro: A&Ox3, moves all extremities, no focal deficits Psych: Appropriate mood and behavior - Lab 01/06/18 00:20 01/07/18 05:14 Most recent lab results Calcium 8.3 mg/dL (8.6-10.3) L 01/07/18 05:14 Phosphorus 3.8 mg/dL (2.7-4.5) 01/07/18 05:14 Magnesium 1.8 mg/dL (1.6-2.6) 01/07/18 05:14 Urine Creatinine 185 mg/dL 01/06/18 11:17 Urine Total Protein 32 mg/dL (1-14) H 01/06/18 11:17 Consult Discharge Plan - Plan Referrals: Kamaljit López MD [Primary Care Provider] -
[2018-01-07 16:09] LABS: Calcium 8.4 mg/dL (8.6-10.3); Potassium 3.4 mEq/L (3.5-5.1)
[2018-01-08 04:05] LABS: Albumin 3.5 g/dL (3.5-5.7); Albumin/Globulin Ratio 1.4 (1.1-2.2); Bilirubin,Total 0.6 mg/dL (0.3-1.0); Calcium 8.8 mg/dL (8.6-10.3); Globulin 2.5 g/dL (2.4-3.5); Magnesium 1.8 mg/dL (1.6-2.6); Potassium 3.5 mEq/L (3.5-5.1)
[2018-01-08] MEDS: *HR* Heparin 5,000 UNIT/ML VIAL SQ SCH (04:53)
[2018-01-08] MEDS: Aspirin 81 MG TAB.CHEW PO SCH (08:05)
[2018-01-08] MEDS: Isosorbide MONOnitrate (24 HR) 30 MG TAB.ER.24H PO SCH (08:05)
[2018-01-08] MEDS: Cholecalciferol (D-3) 1,000 UNIT TABLET PO SCH (08:06)
[2018-01-08] MEDS ORDERED: Sodium Bicarbonate 75 MEQ in 0.45 % Sodium Chloride 1,000 ML IVC SCH (08:30)
--- NOTE | 2018-01-08 09:17 | Internal Med Progress Note ---
Hospitalist Progress Note - Encounter Date of Encounter: 01/08/18 Time of Encounter: 09:30 - Subjective Interval History: awake, feeling well. Only 2 epsiodes of diarrhea overnight and this morning. Watery, green. no fevers, chills, nausea, emesis, abd pain. Eating and drinking without difficulty. Nephro attending at bedside and umm nunez improved and stable for dc from renal standpoint. discharge plan reviewed with pt and and all questions answered. - Exam Vitals: Temp Pulse Resp BP Pulse Ox 98.0 F 77 18 151/76 96 01/08/18 07:11 01/08/18 07:11 01/08/18 07:11 01/08/18 07:11 01/08/18 08:20 Exam: General: awake, alert, appears stated age, nad HEENT:moist mucus membranes, no scleral icterus Cardiovascular:regular rate and rhythm, normal S1 & S2, no le edema Lungs:Normal breath sounds, no wheezes, or crackles. Normal respiratory effort on room air Abdomen:Soft, non-tender, non distended, no rigidity, no guarding,+ bowel sounds Neurological: AAOx3 Skin:Normal color, no rash, no pallor, no jaundice - Assessment and Plan (1) Severe sepsis Current Visit: Yes Status: Resolved Assessment and Plan: Patient met severe sepsis criteria with lactic acid level 2.7, blood pressure 72 /51, heart rate 72 after taking his beta eddie prior to arrival Patient was given 2 L normal saline bolus, 1 L lactated ringers, and 1 g Rocephin IV 1 01/06 RESOLVED BP normotensive, HR normal, afebrile, remains without leukocytosis , lactate 1.3 -Stool culture + salmonella and enteropathogenic ecoli with PCP and c diff neg reportedly at OSH -repeat cx here + gnr -Blood cultures ngtd -UA unremarkable for infection, no cxr as no symptoms of resp infection -treatment of GI infection with cipro PO- dosing as per pharmacy, likely for 7 days depending on clinical picture, given goo dclinical improvement will complete PO dose for 7 days on dc -IVFs as per nephro -ID followed (2) Salmonella enteritis Current Visit: Yes Status: Acute Assessment and Plan: Patient with cramping abdominal pain and diarrhea since eating chicken eggs from his neighbor that he thinks may have been out of date as above (3) Enteropathogenic Escherichia coli infection Current Visit: Yes Status: Acute Assessment and Plan: as above (4) CARLOZ (acute kidney injury) Current Visit: Yes Status: Acute Assessment and Plan: Likely prerenal CARLOZ in the setting of 8 days of diarrhea and hypotension/ decreased renal perfusion, IMPROVED Patient reported decreased urine output on arrival, no signs of obstruction, he is able to void without difficulty after IV fluids [facility] lab work revealed BUN 68, creatinine 9.3 CT abdomen pelvis without contrast revealed a non-obstructing stone in the right kidney, two low attenuation lesions of indeterminate etiology in the right kidney measuring up to 1.3 cm, and a 1.3 cm nodule in the right adrenal gland. MRI scan of the adrenals and kidneys was recommended and will be preformed after renal function is stabilized, perhaps as outpt Renal ultrasound demonstrated cortical thinning in the left superior minimal cortex renal diet renal dose meds Aggressive rehydration IV this admit Nephro following 01/07 change of fluids to 1/2 NS with bicarb and no acute indication for HD 01/08 d/w dr Oneal and stable from renal standpoint for dc,pcp appt in one week, bmp just prior, Dr Oneal office will contact him wednesday with appt for fu, MRI of adrenals as outpt (5) HTN (hypertension) Current Visit: No Status: Chronic Assessment and Plan: currently bps are normotensive to slightly elevated -was continued on home imdur and bps stable, cont to hold home lisinopril on dc -may resume norvac and lopressor on dc fu outpt for cont management (6) HLD (hyperlipidemia) Current Visit: Yes Status: Chronic Assessment and Plan: Continue home statin (7) Obesity (BMI 30.0-34.9) Current Visit: Yes Status: Chronic Assessment and Plan: Lifestyle modification (8) DVT prophylaxis Current Visit: Yes Status: Acute Assessment and Plan: Heparin subcutaneous (9) Hypokalemia Current Visit: Yes Status: Resolved Assessment and Plan: Mild Hypokalemia, magnesium level within normal limits resolved with repletion (10) Hyperphosphatemia Current Visit: Yes Status: Resolved Assessment and Plan: Phosphorus level 6.8 resolved Continue IV hydration - Time Spent with Patient Total time spent is greater than 50% in coordination of care (as documented) at patient's floor/unit and/or counseling patient: 25 - 35 minutes Plan of Care Discussed with: patient Internal Medicine: Result - Labs CBC & Chem 7: 01/06/18 00:20 01/08/18 03:11 Labs: BMP 01/07/18 01/08/18 15:32 03:11 Sodium 138 141 Potassium 3.4 L 3.5 Chloride 111 H 113 H Carbon Dioxide 23 22 L BUN 51 H 43 H Creatinine 3.37 H 2.41 H Glucose 119 H 101 Calcium 8.4 L 8.8 Liver Function 01/08/18 Range/Units 03:11 Total Bilirubin 0.6 (0.3-1.0) mg/dL AST 27 (13-39) Units/L ALT 25 (7-52) Units/L Alkaline Phosphatase 99 (34-104) Units/L Albumin 3.5 (3.5-5.7) g/dL - ABG Interpretation ABG results: PT/INR, D-dimer PT 12.7 Seconds (9.4-12.1) H 01/06/18 07:57 Consult Discharge Plan - Plan Referrals: Kamaljit López MD [Primary Care Provider] - (5) HTN (hypertension) Qualifiers: Hypertension type: essential hypertension Qualified Code(s): I10 - Essential (primary) hypertension (6) HLD (hyperlipidemia) Qualifiers: Hyperlipidemia type: unspecified Qualified Code(s): E78.5 - Hyperlipidemia, unspecified
[2018-01-08 10:36] VITALS: BP 142/65
--- NOTE | 2018-01-08 11:40 | Discharge Summary ---
- NOTES TO OUTPATIENT PROVIDER Notes to Outpatient Provider: He has been given rx for bmp in 5 days and istructed to see pcp after and within one week for follow up. Of note, Nephro office will call him with fu appt. He may NOT use nsaids and hold home acei. He had incidental finding on CT of two low attenuation lesions of indeterminate etiology in the right kidney measuring up to 1.3 cm, and a 1.3 cm nodule in the right adrenal gland. MRI scan of the adrenals and kidneys was recommended. Please arrange outpt Orders not resulted at time of discharge: Pending orders 01/05/18 23:41 Culture,Blood [BC] Stat 01/07/18 04:00 Urine Protein Creat Ratio [place] [UCHEM] AM 0400 01/09/18 04:00 BMP [Basic Metabolic Panel] AM 0400 Magnesium AM 0400 PT/INR [Prothrombin Time INR] [COAG] AM 0400 Date of Encounter: 01/08/18 Time of Encounter: 09:30 - Discharge Diagnosis (1) Severe sepsis Priority: Primary Status: Resolved Assessment and Plan: Patient met severe sepsis criteria with lactic acid level 2.7, blood pressure 72 /51, heart rate 72 after taking his beta eddie prior to arrival Patient was given 2 L normal saline bolus, 1 L lactated ringers, and 1 g Rocephin IV 1 01/06 RESOLVED BP normotensive, HR normal, afebrile, remains without leukocytosis , lactate 1.3 -Stool culture + salmonella and enteropathogenic ecoli with PCP and c diff neg reportedly at OSH -repeat cx here + gnr -Blood cultures ngtd -UA unremarkable for infection, no cxr as no symptoms of resp infection -treatment of GI infection with cipro PO- dosing as per pharmacy, likely for 7 days depending on clinical picture, given goo dclinical improvement will complete PO dose for 7 days on dc -IVFs as per nephro -ID followed (2) Salmonella enteritis Priority: Primary Status: Acute Assessment and Plan: Patient with cramping abdominal pain and diarrhea since eating chicken eggs from his neighbor that he thinks may have been out of date as above (3) Enteropathogenic Escherichia coli infection Priority: Primary Status: Acute Assessment and Plan: as above (4) CARLOZ (acute kidney injury) Priority: Secondary Status: Acute Assessment and Plan: Likely prerenal CARLOZ in the setting of 8 days of diarrhea and hypotension/ decreased renal perfusion, IMPROVED Patient reported decreased urine output on arrival, no signs of obstruction, he is able to void without difficulty after IV fluids [facility] lab work revealed BUN 68, creatinine 9.3 CT abdomen pelvis without contrast revealed a non-obstructing stone in the right kidney, two low attenuation lesions of indeterminate etiology in the right kidney measuring up to 1.3 cm, and a 1.3 cm nodule in the right adrenal gland. MRI scan of the adrenals and kidneys was recommended and will be preformed after renal function is stabilized, perhaps as outpt Renal ultrasound demonstrated cortical thinning in the left superior minimal cortex renal diet renal dose meds Aggressive rehydration IV this admit Nephro following 01/07 change of fluids to 1/2 NS with bicarb and no acute indication for HD 01/08 d/w dr Oneal and stable from renal standpoint for dc,pcp appt in one week, bmp just prior, Dr Oneal office will contact him wednesday with appt for fu, MRI of adrenals and kidneys is needed and should be arranged outpt, this has been communicated in follow up portion of dc summary and Nephrology was aware of finding as well. (5) HTN (hypertension) Priority: Secondary Status: Chronic Assessment and Plan: currently bps are normotensive to slightly elevated -was continued on home imdur and bps stable, cont to hold home lisinopril on dc -may resume norvac and lopressor on dc fu outpt for cont management Qualifiers: Hypertension type: essential hypertension Qualified Code(s): I10 - Essential (primary) hypertension (6) HLD (hyperlipidemia) Priority: Secondary Status: Chronic Assessment and Plan: Continue home statin Qualifiers: Hyperlipidemia type: unspecified Qualified Code(s): E78.5 - Hyperlipidemia , unspecified (7) Obesity (BMI 30.0-34.9) Priority: Secondary Status: Chronic Assessment and Plan: Lifestyle modification (8) DVT prophylaxis Priority: Secondary Status: Acute Assessment and Plan: Heparin subcutaneous (9) Hypokalemia Priority: Secondary Status: Resolved Assessment and Plan: Mild Hypokalemia, magnesium level within normal limits resolved with repletion (10) Hyperphosphatemia Priority: Secondary Status: Resolved Assessment and Plan: Phosphorus level 6.8 resolved Continue IV hydration Hospital course: Mr. Pineda is a 72 year old male admitted with sepsis and CARLOZ related to salmonella and ecoli infection with dehydration from diarrhea. Infectious disease and Nephrology followed. He was treated with oral cipro and aggressive IVFs with good improvement and resolution of sepsis. He did NOT require dialysis. He is dc to home with pcp and nephro follow up, repeat bmp in a week, outpt mri of incidental indeterminate lesions in the kidney/adrenal gland, and holding of home acei and instruction not to take nsaids. - Time Spent with Patient Total time spent providing and/or coordinating discharge services: - Discharge Medications Prescriptions: Ciprofloxacin [Cipro] 500 mg PO Q24H 4 Days #4 tablet Home Medications: Amlodipine Besylate 10 mg PO DAILY 10/11/15 [History] Aspirin 81 mg PO DAILY 10/11/15 [History] Atorvastatin [Lipitor] 40 mg PO HS 10/11/15 [History] Ergocalciferol (VITAMIN D2) [Vitamin D] 400 unit PO DAILY 10/11/15 [History] Isosorbide MONOnitrate (24 HR) [Imdur] 30 mg PO DAILY 10/11/15 [History] Levothyroxine [Synthroid] 150 mcg PO DAILY 10/11/15 [History] Vitamin E (Dl,Tocopheryl Acet) [Vitamin E] 400 unit PO DAILY 10/11/15 [History] Cholecalciferol (D-3) [Vitamin D] 1,000 unit PO DAILY 01/05/18 [History] Metoprolol Succinate [Toprol Xl] 100 mg PO DAILY 01/05/18 [History] Ciprofloxacin [Cipro] 500 mg PO Q24H 4 Days #4 tablet 01/08/18 [Rx] Allergies/Adverse Reactions: 3 Allergy/AdvReac Type Severity Reaction Status Date / Time No Known Allergies Allergy Verified 10/11/15 10:52 Date of admission: 01/05/18 20:49 Primary care physician: Kamaljit López MD Consults: 01/06/18 02:24 Consult to Infectious Diseases [CONS] Routine Consulting Provider: Infectious Disease Dorina Reason for Consult: EPEC, Salmonella Call Completed: Yes Consult to Nephrology [CONS] Routine Consulting Provider: Kidney Dorina/ENRIQUE/DANNY/JAIDA Reason for Consult: CARLOZ SrCr 9, dehydration, hypotension, severe sepsis/ decreased renal perfusion, ACEI use Call Completed: Yes Discharging clinician: Karlee Ramirez - Constitutional Vitals: Temp Pulse Resp BP Pulse Ox 98.1 F 80 18 142/65 95 01/08/18 10:32 01/08/18 10:32 01/08/18 10:32 01/08/18 10:32 01/08/18 10:32 General appearance: Present: cooperative, A&O X 3, pleasant, no acute distress, answers questions appropriately Exam: General: awake, alert, appears stated age, nad HEENT:moist mucus membranes, no scleral icterus Cardiovascular:regular rate and rhythm, normal S1 & S2, no le edema Lungs:Normal breath sounds, no wheezes, or crackles. Normal respiratory effort on room air Abdomen:Soft, non-tender, non distended, no rigidity, no guarding,+ bowel sounds Neurological: AAOx3 Skin:Normal color, no rash, no pallor, no jaundice - Patient Status Disposition: Home, Self-Care Condition: Good Overall status at discharge: patient is back to baseline - Discharge Instructions Follow Up With: Kamaljit López MD [Primary Care Provider] - - Diet and Activity Activity: increase activity as tolerated Diet: advance to your usual diet
--- NOTE | 2018-01-08 11:44 | Nephrology Progress Note ---
Date of Encounter: 01/08/18 Time of Encounter: 10:10 - Assessment and Plan (1) CARLOZ (acute kidney injury) Status: Acute Improving with IVF and so this was most likely a pre-renal CARLOZ. He did not require HD. The pt affirmed that he was taking NSAIDs prior to admission and was instructed to not take NSAIDs but to switch to Tylenol. I counseled him for >50% of the encounter and also discussed/coordinated his care with the Hospitalist. Okay from my standpoint to discharge to home with a recommendation for a BMP in about a week and to follow up with his PCP. Also recommend a one time hospital follow up with me in my Nephro clinic d/t the severity of his CARLOZ to ensure that he does not develop CKD. Thank you. Subjective Principal diagnosis: Diarrhea Interval history: Pt was s/e earlier this AM. He reported feeling significantly better and hopes to D/C today. His was at the bedside. The Hospitalist also was rounding during my interview/exam and we discussed his discharge in detail. The pt affirmed that he was taking NSAIDs prior to admission and was instructed to not take NSAIDs but to switch to Tylenol. Objective - Vital Signs Vital signs: Vital Signs Temp Pulse Resp BP Pulse Ox 01/08/18 10:32 98.1 F 80 18 142/65 95 01/08/18 08:20 96 01/08/18 07:11 98.0 F 77 18 151/76 96 01/08/18 04:24 98.3 F 73 17 128/65 95 01/08/18 00:04 98.2 F 76 17 131/67 94 01/07/18 19:46 97.9 F 70 17 159/69 97 01/07/18 16:32 97.9 F 74 19 136/67 95 Intake and Output 01/07/18 01/08/18 01/08/18 23:59 07:59 15:59 Intake Total 1640 / 1640 400 / 400 480 / 480 Output Total 250 / 250 1500 / 1500 300 / 300 Balance 1390 / 1390 -1100 / -1100 180 / 180 Intake: IV Fluids 1000 / 1000 Sodium Bicarbonate 75 MEQ In 0. 1000 / 1000 45% Sodium Chloride 1000 Ml 1000 Ml 1,000 ML @ 100 mls/hr IVC .[id number] [facility] Rx#:[id number] Oral 640 / 640 400 / 400 480 / 480 Output: Urine 250 / 250 1500 / 1500 300 / 300 Other: Meal Dinner Percent of Meal Consumed 75% # Voids 1 Weight 100 kg Patient Weight 01/08/18 23:59 Weight 100 kg - General Appearance General appearance: Present: well-developed, well-nourished, appears started age , obese EENT: Present: ATNC, PERRL, mucous membranes moist Neck: Present: no JVD, supple Respiratory: Present: clear Cardiology: Present: no edema, regular rate, regular rhythm, normal S1, normal S2 Gastrointestinal: Present: normoactive bowel sounds, no tenderness, no guarding , obese Integumentary: Present: no rash, warm and dry Neurologic: Present: no focal deficit, no asterixis, alert and oriented x3 Musculoskeletal: Present: no deformities, no erythema, no cyanosis, no clubbing Psychiatric: Present: mood/affect appropriate, cooperative - Lab 01/06/18 00:20 01/08/18 03:11 Most recent lab results Calcium 8.8 mg/dL (8.6-10.3) 01/08/18 03:11 Phosphorus 3.8 mg/dL (2.7-4.5) 01/07/18 05:14 Magnesium 1.8 mg/dL (1.6-2.6) 01/08/18 03:11 Urine Creatinine 185 mg/dL 01/06/18 11:17 Urine Total Protein 32 mg/dL (1-14) H 01/06/18 11:17 - Imaging Kidney/bladder ultrasound: report reviewed Consult Discharge Plan - Plan Instructions: Ciprofloxacin (By mouth) Referrals: Kamaljit López MD [Primary Care Provider] - Prescriptions: Ciprofloxacin [Cipro] 500 mg PO Q24H 4 Days #4 tablet
== END 2018-01-08 12:13 | disposition home or self-care (01) | DRG 872 ==
LOC: ICNU 20:49 → SUATTDRO 20:49 → 2ANU 01-06 00:02
PROVIDERS: ADMIT Internal Medicine; ATTEND Internal Medicine